=== PATIENT | female | born 2000 | race Caucasian/White ===

== ENCOUNTER 2020-03-26 17:51 | Emergency (ER) | payer OTHER ==
[~2020-03-26] VITALS: Ht 154.9 cm; Wt 63.5 kg
[2020-03-26] MEDS ORDERED: PROAIR RESPICL90 MCG IH (20:34)
== END 2020-03-26 21:16 | disposition home or self-care (01) ==
LOC: ER 17:51
DX: R06.02 Shortness of breath (principal); Z03.818 Encounter for observation for suspected exposure to other biological agents ruled out